=== PATIENT | male | born 1960 | race Caucasian/White ===

== ENCOUNTER 2023-05-15 13:34 | Emergency (ER) | payer BC, SELFPAY ==
[2023-05-15 13:58] VITALS: BP 147/91; PULSE 60; RESP 16; TEMP 36.7; O2SAT 99
--- NOTE | 2023-05-15 14:07 | ED.EYEPROB ---
HPI - Eye Problem General Chief complaint: Eye Problems Stated complaint: left eye irritation Source: patient Mode of arrival: ambulatory Limitations: no limitations History of Present Illness HPI Narrative: 63 y/o male presented for c/o left lower lid pain for about 4 days. States it started with feeling like he got poked in the eye, then progressed to redness and swelling to the lower lid. This morning he noticed a 'pimple' to the inside, and was able to expel white drainage, which provided improvement in pain. Denies any vision changes, photophobia, pain with eye movements, redness to eyeball, headache, dizziness, n/v/d/f/c. chief complaint: eye pain Related Data Home Medications Medication Instructions Recorded Confirmed levothyroxine 75 mcg tablet 75 mcg PO DAILY 05/15/23 05/15/23 Allergies Allergy/AdvReac Type Severity Reaction Status Date / Time No Known Allergies Allergy Verified 05/15/23 13:58 Review of Systems Review of Systems: CONSTITUTIONAL: Denies body aches, fever, chills EYES:Endorses swelling, redness and pain to lower left eyelid; denies FB sensation, photophobia, visual changes ENT: Denies rhinorrhea, congestion, sore throat, or otalgia. CARDIOVASCULAR: Denies chest pain, palpitations RESPIRATORY: Denies cough or dyspnea. GASTROINTESTINAL: Denies abdominal pain, nausea, vomiting, or diarrhea. SKIN: Denies rash, itching, or wounds. MUSCULOSKELETAL: Denies back pain, joint pain, or myalgia. NEUROLOGIC: Denies headache, numbness, tingling, or weakness. All systems reviewed & are unremarkable except as noted in HPI and below [facility] Past Medical History Medical History (Updated 05/15/23 @ 14:12 by Pauly Bolanso APRN) No pertinent past medical history Comments At time of signature, I have reviewed and agree with nursing past medical, surgical, social and family history unless otherwise noted. Please see nursing chart for further information. There is no relevant family history pertinent to the presenting complaint Exam Narrative: GENERAL: Well-appearing HEAD: Normocephalic, atraumatic. EYES: Left lower eye lid swelling, redness and tenderness with inner lid stye formation, white drainage. PERRLA, EOMI. Lid eversion Shows no foreign body. No conjunctival injection. ENT: Mucous membranes pink and moist. No rhinorrhea. TMs normal bilaterally. Throat normal. Uvula midline. CHEST: Clear to auscultation. HEART: Regular rate and rhythm. ABDOMEN: Soft, nontender, nondistended SKIN: Warm, dry, no rash. Normal skin turgor. NEURO: No focal deficits. Alert and oriented x3 PSYCH: Normal affect. Course Course Emergency Course: Patient is aware of diagnosis, understands and agrees to treatment plan. Anticipatory guidance given. Patient agrees to follow-up as directed and is aware of reasons to seek care at the emergency department. Portions of this record may have been created with voice recognition software Level of Care: Express Care Visit Vital Signs Vital signs: Vital Signs Temperature 98.1 F 05/15/23 13:58 Pulse Rate 60 05/15/23 13:58 Respiratory Rate 16 05/15/23 13:58 Blood Pressure 147/91 H 05/15/23 13:58 Pulse Oximetry 99 05/15/23 13:58 Oxygen Delivery Room Air 05/15/23 13:58 Temperature 98.1 F 05/15/23 13:58 Pulse Rate 60 05/15/23 13:58 Respiratory Rate 16 05/15/23 13:58 Blood Pressure 147/91 H 05/15/23 13:58 Pulse Oximetry 99 05/15/23 13:58 Oxygen Delivery Room Air 05/15/23 13:58 MDM - Eye Problem MDM Narrative Medical decision making narrative: Discussed physical exam findings Consistent with internal hordeolum. Advised supportive measures and signs/symptoms to go to the ER. Pt is appropriate for outpt treatment and f/u. Differential Diagnosis Differential diagnosis: Likely corneal abrasion, conjunctivitis, acute iritis, periorbital cellulitis, subconjunctival hemorrhage, corneal ulcer and other (allergi
== END 2023-05-15 14:13 | disposition home or self-care (01) ==
PROVIDERS: Emergency Provider Nurse Practitioner Family
DX: H00.025 Hordeolum internum left lower eyelid (principal)
CPT/HCPCS: 99213; G0463